=== PATIENT | female | born 1975 | race Caucasian/White ===

== ENCOUNTER 2017-09-27 04:32 | Inpatient (IN) | payer OTHER ==
[~2017-09-27] VITALS: Ht 154.9 cm; Wt 68.5 kg
[2017-09-27] MEDS ORDERED: DEXAMETHASONE 4 MG/ML, 5ML ONE (04:40)
[2017-09-27] MEDS ORDERED: LORazepam 2 MG/ML, 1ML ONE ×2 (04:44→09:54)
[2017-09-27] MEDS: ALBUTEROL SULFATE 2.5 MG/3 ML NPPB SCH (04:46)
[2017-09-27] MEDS ORDERED: LORazepam 2 MG/ML, 1ML IVP ONE (05:00)
[2017-09-27] MEDS ORDERED: DEXAMETHASONE 4 MG/ML, 1ML IVPush ONE (05:00)
[2017-09-27] MEDS ORDERED: SODIUM CHLORIDE FLUSH 10ML SYR IVF ONE (05:00)
[2017-09-27] MEDS ORDERED: SODIUM CHLORIDE 0.9% 1,000ML IVBOLUS ONE (05:00)
[2017-09-27 05:20] LABS: HEMATOCRIT 41.4 % (34.6-47.8); HEMOGLOBIN 13.5 g/dL (11.7-16.4); WHITE BLOOD COUNT 12.2 x10^3/uL (3.4-10)
[2017-09-27 05:31] LABS: BLOOD UREA NITROGEN 6 mg/dL (7-18)
[2017-09-27] MEDS ORDERED: ALBU0.63 NEB (06:38)
[2017-09-27] MEDS ORDERED: FLUT1DIS IH (06:38)
[2017-09-27] MEDS ORDERED: MONT4GRA2 PO (06:38)
[2017-09-27] MEDS ORDERED: SODIUM CHLORIDE FLUSH 10ML SYR IVF PRN (07:00)
[2017-09-27] MEDS ORDERED: POLYETHYLENE GLYCOL 17 GM PACKET PO PRN (07:30)
[2017-09-27] MEDS ORDERED: methylPREDNISolone SOD SUCC 125 MG/2 ML IVPush SCH (07:30)
[2017-09-27] MEDS ORDERED: DOCUSATE 100 MG CAPSULE PO PRN (07:30)
[2017-09-27] MEDS ORDERED: BISACODYL 10 MG SUPP PR PRN (07:30)
[2017-09-27] MEDS ORDERED: ONDANSETRON 2MG/ML, 2ML IVPush PRN (07:30)
[2017-09-27] MEDS ORDERED: ACETAMINOPHEN 325 MG TABLET PO PRN (07:30)
[2017-09-27] MEDS ORDERED: ONDANSETRON ODT 4 MG PO PRN (07:30)
[2017-09-27] MEDS ORDERED: ALBUTEROL SULFATE 2.5 MG/3 ML ONE (07:46)
[2017-09-27] MEDS ORDERED: methylPREDNISolone SOD SUCC 125 MG/2 ML ONE (07:46)
[2017-09-27 08:36] LABS: ABG COLLECTION SITE RIGHT RADIAL; COLLATERAL CIRCULATION TESTING NORMAL
[2017-09-27] MEDS: FAMOTIDINE 20 MG TABLET PO SCH ×2 (09:00→20:53)
[2017-09-27] MEDS: AZITHROMYCIN 500 MG in SODIUM CHLORIDE 0.9% 250 ML IV SCH (09:17)
[2017-09-27] MEDS ORDERED: ALBUTEROL/IPRATROPIUM 2.5MG/0.5MG, 3 ML NPPB PRN (09:30)
[2017-09-27] MEDS ORDERED: MAGNESIUM SULFATE PMX 2GM/50ML 50 ML IVPB SCH (10:00)
[2017-09-27] MEDS ORDERED: LORazepam 2 MG/ML, 1ML IVPush ONE ×2 (10:00→12:00)
[2017-09-27] MEDS ORDERED: ACETAMINOPHEN 325 MG TABLET ONE (10:41)
[2017-09-27 10:50] LABS: ABG COLLECTION SITE RIGHT RADIAL; COLLATERAL CIRCULATION TESTING NORMAL; FIO2 50 %
[2017-09-27 12:05] VITALS: BP 122/72
[2017-09-27] MEDS ORDERED: POTASSIUM CHLORIDE 20 MEQ TAB.ER.PRT PO ONE (12:30)
[2017-09-27] MEDS: NICOTINE 21 MG/24 HR PATCH.TD24 TD SCH (13:47)
[2017-09-27] MEDS: methylPREDNISolone SOD SUCC 125 MG/2 ML IVPush SCH ×2 (13:47→19:13)
[2017-09-27] MEDS: ENOXAPARIN 40 MG/0.4 ML SQ SCH (13:47)
[2017-09-27 13:50] LABS: RAPID INFLUENZA A POSITIVE (Negative); RAPID INFLUENZA B Negative (Negative)
[2017-09-27] MEDS: OSELTAMIVIR 75 MG CAPSULE PO SCH (17:09)
[2017-09-27] MEDS: ALBUTEROL/IPRATROPIUM 2.5MG/0.5MG, 3 ML NPPB SCH ×2 (18:59→22:09)
[2017-09-27] MEDS: TRAZODONE 50MG TABLET PO PRN (21:46)
[2017-09-28] MEDS: methylPREDNISolone SOD SUCC 125 MG/2 ML IVPush SCH ×4 (00:24→20:26)
[2017-09-28] MEDS: ALBUTEROL/IPRATROPIUM 2.5MG/0.5MG, 3 ML NPPB SCH ×5 (01:37→19:00)
[2017-09-28 03:59] VITALS: BP 110/87
[2017-09-28 04:34] LABS: ABG COLLECTION SITE RIGHT RADIAL; COLLATERAL CIRCULATION TESTING NORMAL
[2017-09-28 04:49] LABS: HEMATOCRIT 40.7 % (34.6-47.8); HEMOGLOBIN 13.4 g/dL (11.7-16.4); WHITE BLOOD COUNT 17.3 x10^3/uL (3.4-10)
[2017-09-28 04:57] LABS: ASPARTATE AMINO TRANSFERASE 31 U/L (15-37); BLOOD UREA NITROGEN 9 mg/dL (7-18)
[2017-09-28] MEDS: OSELTAMIVIR 75 MG CAPSULE PO SCH ×3 (05:52→21:02)
[2017-09-28] MEDS: FAMOTIDINE 20 MG TABLET PO SCH ×2 (07:52→20:28)
[2017-09-28] MEDS: AZITHROMYCIN 500 MG in SODIUM CHLORIDE 0.9% 250 ML IV SCH (07:52)
[2017-09-28] MEDS: HYDROcodone/APAP 5/325 TABLET PO PRN ×3 (07:53→20:28)
[2017-09-28] MEDS: NICOTINE 21 MG/24 HR PATCH.TD24 TD SCH (12:30)
[2017-09-28] MEDS: ENOXAPARIN 40 MG/0.4 ML SQ SCH (12:30)
[2017-09-28] MEDS: TRAZODONE 50MG TABLET PO PRN (21:56)
[2017-09-29] MEDS: ALBUTEROL/IPRATROPIUM 2.5MG/0.5MG, 3 ML NPPB SCH ×5 (03:00→20:10)
[2017-09-29] MEDS: methylPREDNISolone SOD SUCC 125 MG/2 ML IVPush SCH ×4 (03:07→19:49)
[2017-09-29 03:48] VITALS: BP 119/64
[2017-09-29 04:19] LABS: HEMATOCRIT 41.4 % (34.6-47.8); HEMOGLOBIN 13.4 g/dL (11.7-16.4); WHITE BLOOD COUNT 18.9 x10^3/uL (3.4-10)
[2017-09-29 04:29] LABS: ASPARTATE AMINO TRANSFERASE 24 U/L (15-37); BLOOD UREA NITROGEN 11 mg/dL (7-18)
[2017-09-29] MEDS: AZITHROMYCIN 500 MG in SODIUM CHLORIDE 0.9% 250 ML IV SCH (09:33)
[2017-09-29] MEDS: FAMOTIDINE 20 MG TABLET PO SCH ×2 (09:33→19:50)
[2017-09-29] MEDS: OSELTAMIVIR 75 MG CAPSULE PO SCH ×2 (09:33→19:50)
[2017-09-29] MEDS: GUAIFENESIN/COD200MG-20MG/10ML LIQUID PO PRN ×2 (11:08→17:26)
[2017-09-29] MEDS: NICOTINE 21 MG/24 HR PATCH.TD24 TD SCH (15:06)
[2017-09-29] MEDS: ENOXAPARIN 40 MG/0.4 ML SQ SCH (15:07)
[2017-09-29] MEDS ORDERED: ACETAMINOPHEN 325 MG TABLET PO PRN (19:30)
[2017-09-29] MEDS ORDERED: BISACODYL 10 MG SUPP PR PRN (19:30)
[2017-09-29] MEDS ORDERED: ONDANSETRON ODT 4 MG PO PRN (19:30)
[2017-09-29] MEDS ORDERED: DOCUSATE 100 MG CAPSULE PO PRN (19:30)
[2017-09-29] MEDS ORDERED: ONDANSETRON 2MG/ML, 2ML IVPush PRN (19:30)
[2017-09-29] MEDS ORDERED: POLYETHYLENE GLYCOL 17 GM PACKET PO PRN (19:30)
[2017-09-29] MEDS: HYDROcodone/APAP 5/325 TABLET PO PRN (19:49)
[2017-09-29] MEDS: TRAZODONE 50MG TABLET PO PRN (19:53)
[2017-09-30] MEDS: HYDROcodone/APAP 5/325 TABLET PO PRN ×2 (00:05→18:21)
[2017-09-30] MEDS: GUAIFENESIN/COD200MG-20MG/10ML LIQUID PO PRN ×3 (01:36→21:58)
[2017-09-30] MEDS: methylPREDNISolone SOD SUCC 125 MG/2 ML IVPush SCH ×2 (01:36→07:49)
[2017-09-30] MEDS: ALBUTEROL/IPRATROPIUM 2.5MG/0.5MG, 3 ML NPPB SCH ×7 (02:22→23:20)
[2017-09-30 04:24] VITALS: BP 125/67
[2017-09-30 04:46] LABS: HEMATOCRIT 39.3 % (34.6-47.8); HEMOGLOBIN 12.8 g/dL (11.7-16.4)
[2017-09-30 04:57] LABS: BLOOD UREA NITROGEN 11 mg/dL (7-18)
[2017-09-30] MEDS: FAMOTIDINE 20 MG TABLET PO SCH ×2 (07:48→21:58)
[2017-09-30] MEDS: OSELTAMIVIR 75 MG CAPSULE PO SCH ×2 (07:49→21:58)
[2017-09-30] MEDS: AZITHROMYCIN 500 MG in SODIUM CHLORIDE 0.9% 250 ML IV SCH (10:34)
[2017-09-30] MEDS: NICOTINE 21 MG/24 HR PATCH.TD24 TD SCH (13:02)
[2017-09-30] MEDS: ENOXAPARIN 40 MG/0.4 ML SQ SCH (13:02)
[2017-09-30 14:08] VITALS: BP 128/100
[2017-09-30] MEDS ORDERED: FLU VACC QS2017-18 (36MOS+) UP/PF 0.5 ML IM-VACC ONE (14:30)
[2017-09-30 15:00] VITALS: BP 121/70
[2017-09-30 20:25] VITALS: BP 135/81
[2017-09-30] MEDS: TRAZODONE 50MG TABLET PO PRN (21:58)
[2017-10-01] MEDS: ALBUTEROL/IPRATROPIUM 2.5MG/0.5MG, 3 ML NPPB SCH ×4 (03:00→15:15)
[2017-10-01 03:19] VITALS: BP 120/77
[2017-10-01 05:50] LABS: HEMATOCRIT 39.6 % (34.6-47.8); HEMOGLOBIN 12.8 g/dL (11.7-16.4); WHITE BLOOD COUNT 13.3 x10^3/uL (3.4-10)
[2017-10-01 05:57] LABS: BLOOD UREA NITROGEN 12 mg/dL (7-18)
[2017-10-01 06:50] VITALS: BP 128/77
[2017-10-01] MEDS: FAMOTIDINE 20 MG TABLET PO SCH (08:45)
[2017-10-01] MEDS: OSELTAMIVIR 75 MG CAPSULE PO SCH (08:46)
[2017-10-01] MEDS: AZITHROMYCIN 500 MG in SODIUM CHLORIDE 0.9% 250 ML IV SCH (08:46)
[2017-10-01] MEDS ORDERED: METH5TAB6 PO (11:06)
[2017-10-01] MEDS ORDERED: AZIT500T PO (11:06)
[2017-10-01 12:21] VITALS: BP 114/65
[2017-10-01] MEDS: ENOXAPARIN 40 MG/0.4 ML SQ SCH (13:00)
[2017-10-01] MEDS: NICOTINE 21 MG/24 HR PATCH.TD24 TD SCH (13:30)
== END 2017-10-01 18:25 | disposition home or self-care (01) | DRG 208 ==
LOC: ED 06:50 → EDIP 06:51 → CCU 11:35 → ICU 09-28 15:17 → CCU 09-29 22:25 → 4EST 09-30 14:48
PROVIDERS: ADMIT Internal Medicine; ATTEND Internal Medicine
PROC: 0BH17EZ Insertion of Endotracheal Airway into Trachea, Via Natural or Artificial Opening (ICD-10-PCS; principal; 2017-09-27)
PROC: 5A1935Z Respiratory Ventilation, Less than 24 Consecutive Hours (ICD-10-PCS; 2017-09-27)
PROC: 5A09357 Assistance with Respiratory Ventilation, Less than 24 Consecutive Hours, Continuous Positive Airway Pressure (ICD-10-PCS; 2017-09-27)
DX: J45.42 Moderate persistent asthma with status asthmaticus (principal); J96.01 Acute respiratory failure with hypoxia; E44.0 Moderate protein-calorie malnutrition; E05.90 Thyrotoxicosis, unspecified without thyrotoxic crisis or storm; Z68.28 Body mass index [BMI] 28.0-28.9, adult; E87.6 Hypokalemia; F41.9 Anxiety disorder, unspecified; J10.1 Influenza due to other identified influenza virus with other respiratory manifestations; J20.8 Acute bronchitis due to other specified organisms; L08.9 Local infection of the skin and subcutaneous tissue, unspecified; Z82.5 Family history of asthma and other chronic lower respiratory diseases; Z91.19 Patient's noncompliance with other medical treatment and regimen; Z91.013 Allergy to seafood
CPT/HCPCS: 36415; 36600; 71010; 80048; 80053; 80061; 81003; 82040; 82803; 83735; 84100; 84439; 84443; 85025; 87040; 87081; 87400; 90686; 93005; 94640; 94660; 96365; 96366; 96368; 96375; 96376; J0456; J1100; J1650; J7613; J7620; J2060; J2930; J3475; J7030; J7050; J7512